=== PATIENT | female | born 1960 | race Caucasian/White ===

== ENCOUNTER 2020-09-13 09:10 | Inpatient (IN) ==
[2020-09-13] MEDS ORDERED: Clindamycin 900 MG/50 ML 900 MG/50 ML IV.SOLN IVPB ONE (09:31)
[2020-09-13] MEDS ORDERED: Ringers Solution, Lactated 1,000 ML IVC SCH (09:45)
[2020-09-13] MEDS ORDERED: Vancomycin 1,250 MG/262.5 ML IV.SOLN IVPB ONE (10:00)
[2020-09-13] MEDS ORDERED: Albuterol 2.5 MG/3 ML NEBULIZER IH ONE (10:00)
[2020-09-13] MEDS ORDERED: Famotidine 20 MG/2 ML VIAL IVP ONE (10:00)
[2020-09-13] MEDS ORDERED: Acetaminophen IV 1,000 MG/100 ML BAG IVPB ONE (10:00)
[2020-09-13] MEDS ORDERED: *HR* OxyCODONE Immed Rel 5 MG TABLET PO PRN ×2 (10:01→17:24)
[2020-09-13] MEDS ORDERED: Ondansetron 4 MG/2 ML VIAL IVP PRN ×2 (10:01→17:24)
[2020-09-13] MEDS ORDERED: *HR* HYDROmorphone PF 0.5 MG/0.5 ML SYRINGE IVP PRN (10:01)
[2020-09-13] MEDS ORDERED: Albuterol 2.5 MG/3 ML NEBULIZER IH PRN (10:01)
[2020-09-13] MEDS ORDERED: *HR* Midazolam HCl 2 MG/2 ML VIAL ONE (11:01)
[2020-09-13] MEDS ORDERED: *HR* FentaNYL (PF) 100 MCG/2 ML VIAL ONE ×2 (11:01→13:46)
[2020-09-13] MEDS ORDERED: Lidocaine HCL 4 ML Topical Solution (Laryng-O-Jet Kit Sterile Pak) TP ONE (11:01)
[2020-09-13] MEDS ORDERED: *HR* Rocuronium Bromide 50 MG/5 ML VIAL ONE (11:01)
[2020-09-13] MEDS ORDERED: Ondansetron 4 MG/2 ML VIAL ONE (11:01)
[2020-09-13] MEDS ORDERED: *HR* Propofol 200 MG/20 ML VIAL IVP ONE (11:01)
[2020-09-13] MEDS ORDERED: Lidocaine -MPF 2% 2 ML VIAL ONE (11:01)
[2020-09-13] MEDS ORDERED: Heparin 1,000 UNITS/500 mL 1,000 ML ONE (11:03)
[2020-09-13] MEDS ORDERED: Protamine Sulfate 50 MG/5 ML VIAL IVP ONE (11:03)
[2020-09-13] MEDS ORDERED: Vancomycin 1,000 MG VIAL ONE ×2 (11:08→14:24)
[2020-09-13] MEDS ORDERED: Isovue-300 50ML VIAL ONE ×2 (11:43→15:22)
[2020-09-13] MEDS ORDERED: EPHEDrine 50 MG/ML VIAL ONE (12:36)
[2020-09-13] MEDS ORDERED: *HR* Vasopressin 20 UNIT/ML VIAL ONE (12:45)
[2020-09-13] MEDS ORDERED: Albumin Human 5% 12.5 GM/250 ML IV.SOLN ONE (12:45)
[2020-09-13] MEDS ORDERED: Sugammadex Sodium 200 MG/2 ML VIAL IV ONE (16:54)
[2020-09-13] MEDS ORDERED: D5% in Water 1,000 ML IVC PRN (17:24)
[2020-09-13] MEDS ORDERED: *HR* Labetalol 20 MG/4 ML SYRINGE IVP PRN (17:24)
[2020-09-13] MEDS ORDERED: *HR* Dextrose 50 % in Water (Vial) 50 ML VIAL IVP PRN (17:24)
[2020-09-13] MEDS ORDERED: Naloxone 0.4 MG/ML INJ IVP PRN (17:24)
[2020-09-13] MEDS ORDERED: Acetaminophen 325 MG TABLET PO PRN (17:24)
[2020-09-13] MEDS ORDERED: Dextrose Gel 15 GM/37.5 ML TUBE PO PRN ×2 (17:24)
[2020-09-13] MEDS ORDERED: *HR* HYDROcodone/Acet 5/325 mg TABLET PO PRN (17:24)
[2020-09-13] MEDS ORDERED: Fluticasone Propionate Nasal 50 MCG/SPRAY BOTTLE NS PRN (17:55)
[2020-09-13] MEDS: Sucralfate 1 GM TABLET PO SCH ×2 (20:07→20:16)
[2020-09-13] MEDS: FATTY ACIDS PO SCH (20:16)
[2020-09-13] MEDS: OMEGA PO SCH (20:16)
[2020-09-13] MEDS ORDERED: Insulin DETEMIR 100 UNIT/ML X5UNITS SUBQ SCH (21:00)
[2020-09-13] MEDS ORDERED: Topiramate 25 MG TABLET PO SCH (21:00)
[2020-09-14] MEDS ORDERED: Vancomycin 1,250 MG/262.5 ML IV.SOLN IVPB ONE (01:00)
[2020-09-14 04:51] LABS: Basophils % 0.3 %; Hematocrit 31.6 % (35.3-44.9); Hemoglobin 11.1 g/dL (11.5-15.4); Immature Granulocytes % 0.3 % (0-4); Lymphocytes # 1.8 K/mcL (0.6-4.6); Lymphocytes % 14.9 %; Mean Corpuscular HGB Conc 35.1 g/dL (31.6-35.5); Mean Corpuscular Hemoglobin 30.8 pg (28.0-33.3); Mean Corpuscular Volume 87.8 fL (83.0-100.0); Mean Platelet Volume 9.6 fL (9.4-12.4); Monocytes # 0.6 K/mcL (0.0-1.3); Neutrophils # 9.6 K/mcL (1.6-8.9); Platelet Count 275 K/mcL (140-400); Red Cell Distribution Width 13.1 % (11.5-14.5); Segmented Neutrophils % 79.5 %; White Blood Count 12.1 K/mcL (4.3-11.1)
[2020-09-14 05:06] LABS: BUN/Creatinine Ratio 14 (6-26); Blood Urea Nitrogen 11 mg/dL (6-20); Calcium 8.3 mg/dL (8.6-10.3); Carbon Dioxide 24 mEq/L (23-29); Chloride 102 mEq/L (98-107); Glucose 190 mg/dL (70-105); Osmolality,Calculated 284 (280-300); Potassium 3.6 mEq/L (3.5-5.1); Sodium 135 mEq/L (136-145); eGFR For African Americans > 60 (> 60); eGFR For Non-African Americans > 60 (> 60)
[2020-09-14] MEDS: Sucralfate 1 GM TABLET PO SCH ×2 (08:13→11:45)
[2020-09-14] MEDS: FATTY ACIDS PO SCH (08:13)
[2020-09-14] MEDS: OMEGA PO SCH (08:13)
[2020-09-14] MEDS ORDERED: Aspirin Enteric Coated 81 MG Tablet PO SCH (09:00)
[2020-09-14] MEDS ORDERED: lisinopriL 5 MG TABLET PO SCH (09:00)
[2020-09-14] MEDS ORDERED: Furosemide 40 MG TABLET PO SCH (09:00)
[2020-09-14] MEDS ORDERED: Cholecalciferol (D-3) 1,000 UNIT (25MCG) TABLET PO SCH (09:00)
[2020-09-14 11:24] VITALS: BP 109/60
== END 2020-09-14 14:44 | disposition home or self-care (01) | DRG 169 ==
LOC: SAMDAY 09:10 → 2NNU 11:06
PROVIDERS: ADMIT Surgery Vascular Surgery; ATTEND Surgery Vascular Surgery